=== PATIENT | female | born 2000 | race Caucasian/White ===

== ENCOUNTER 2023-03-12 09:33 | Emergency (ER) | payer BC ==
[~2023-03-12] VITALS: Ht 157.5 cm; Wt 66.2 kg
[2023-03-12 09:35] VITALS: BP 129/75; TEMP 97.8
[2023-03-12] MEDS ORDERED: proMETHazine DM oral syrup 5ml UD PO ONE (10:20)
[2023-03-12] MEDS ORDERED: albuterol 2.5 MG/3 ML nebule NEB ONE (10:20)
[2023-03-12] MEDS ORDERED: guaiFENesin/DM 10ml UD oral syrup PO ONE (10:35)
[2023-03-12 10:45] VITALS: PULSE 72; PULSE 75; RESP 18; O2SAT 100
[2023-03-12 10:45] LABS: STREP A SCREEN NEGATIVE (Neg)
[2023-03-12] MEDS ORDERED: PRED20TA PO (11:43)
[2023-03-12] MEDS ORDERED: AZIT250T2 PO (11:43)
[2023-03-12] MEDS ORDERED: ALBU8HFA PO (11:43)
--- NOTE | 2023-03-12 12:08 | NUR ---
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
== END 2023-03-12 12:09 | disposition home or self-care (01) ==
LOC: ER 09:33
DX: J40 Bronchitis, not specified as acute or chronic (principal); Z20.822 Contact with and (suspected) exposure to COVID-19; R50.9 Fever, unspecified; Z79.2 Long term (current) use of antibiotics; Z79.899 Other long term (current) drug therapy
CPT/HCPCS: 36415; 71045; 87081; 87502; 87503; 87802; 87811; 87880; 94640; 94760; 99284

== ENCOUNTER 2024-06-17 16:12 | Emergency (ER) | payer BC, OTHER ==
[~2024-06-17] VITALS: Ht 157.5 cm; Wt 68.2 kg
[2024-06-17 16:14] VITALS: BP 134/89; PULSE 71; RESP 18; TEMP 98; O2SAT 100
== END 2024-06-17 17:01 | disposition home or self-care (01) ==
LOC: ER 16:13
DX: S16.1XXA Strain of muscle, fascia and tendon at neck level, initial encounter (principal); S33.5XXA Sprain of ligaments of lumbar spine, initial encounter; V43.62XA Car passenger injured in collision with other type car in traffic accident, initial encounter; Y93.89 Activity, other specified; Y92.410 Unspecified street and highway as the place of occurrence of the external cause; Y99.8 Other external cause status
CPT/HCPCS: 72040; 72100; 99284